=== PATIENT | female | born 1935 | race Caucasian/White ===

== ENCOUNTER → 2016-03-14 | Outpatient (CLI) | payer MEDICARE, OTHER ==
[~2016-03-14] MED LIST: BONIVA150 MG PO; DICLOFENAC50 MG PO; GLUCOPHAGE850 MG/TA1 PO; IRON325 M1 PO; LIPITOR 10MG10 MG PO; LOW DOSE ASPIRI81 MG PO; OSCAL 500 TAB500 MG PO; POTASSIUM CITR10 MEQ PO; PRILOSEC20 MG PO; VITAMIN B1225 MCG PO; ZESTRIL 20MG TA20 MG PO; ZYLOPRIM300 MG PO
== END ==
LOC: MC.RAD 13:35
DX: Z12.31 Encounter for screening mammogram for malignant neoplasm of breast (principal)

== ENCOUNTER → 2016-04-04 | Outpatient (REF) | LOC: ZLAB.WCH 10:34 | DX: Z01.89 Encounter for other specified special examinations (principal) ==

== ENCOUNTER → 2016-11-02 | Outpatient (REF) | LOC: ZLAB.WCH 15:44 | DX: Z01.89 Encounter for other specified special examinations (principal) ==

== ENCOUNTER → 2017-05-02 | Outpatient (REF) | LOC: ZLAB.WCH 17:51 | DX: Z01.89 Encounter for other specified special examinations (principal) ==

== ENCOUNTER → 2017-05-24 | Outpatient (CLI) | payer MEDICARE, OTHER | LOC: MC.RAD 07:08 | DX: Z12.31 Encounter for screening mammogram for malignant neoplasm of breast (principal) ==

== ENCOUNTER → 2017-11-04 | Outpatient (REF) | LOC: ZLAB.WCH 16:27 | DX: Z01.89 Encounter for other specified special examinations (principal) ==

== ENCOUNTER → 2018-05-16 | Outpatient (REF) | LOC: ZLAB.WCH 10:41 | DX: Z01.89 Encounter for other specified special examinations (principal) ==

== ENCOUNTER → 2018-06-16 | Outpatient (CLI) | payer MEDICARE, OTHER | LOC: MC.RAD 13:27 | DX: Z12.31 Encounter for screening mammogram for malignant neoplasm of breast (principal) ==

== ENCOUNTER → 2019-08-04 | Outpatient (CLI) | payer MEDICARE, OTHER | LOC: MC.RAD 14:46 | DX: Z12.31 Encounter for screening mammogram for malignant neoplasm of breast (principal) ==

== ENCOUNTER 2020-02-11 14:15 | Outpatient (RCR) | payer MEDICARE, OTHER | END 2020-02-15 | disposition home or self-care (01) | LOC: MKS.ESL.PT | DX: M50.30 Other cervical disc degeneration, unspecified cervical region (principal) ==

== ENCOUNTER 2020-02-19 14:15 | Outpatient (RCR) | payer MEDICARE, OTHER | END 2020-03-28 18:54 | disposition home or self-care (01) | LOC: MKS.ESL.PT 14:15 | DX: M50.30 Other cervical disc degeneration, unspecified cervical region (principal) ==

== ENCOUNTER 2022-06-07 10:15 | Outpatient (RCR) | payer MEDICARE, OTHER | END 2022-06-10 | disposition home or self-care (01) | LOC: MKS.ESL.PT | DX: M50.30 Other cervical disc degeneration, unspecified cervical region (principal) ==